=== PATIENT | female | born 1960 | race Caucasian/White ===

== ENCOUNTER 2023-08-25 02:37 | Emergency (ER) | payer BC ==
[2023-08-25] MEDS ORDERED: Oxymetazoline HCl 0.05% ( 15 ML ) ONE (02:59)
== END 2023-08-25 04:10 | disposition home or self-care (01) ==
LOC: CSHERS 02:37
DX: R04.0 Epistaxis (principal); E11.9 Type 2 diabetes mellitus without complications; I10 Essential (primary) hypertension; Z79.84 Long term (current) use of oral hypoglycemic drugs; Z79.82 Long term (current) use of aspirin
CPT/HCPCS: 99282